=== PATIENT | female | born 1990 | race Caucasian/White ===

== ENCOUNTER 2017-05-30 14:20 | Outpatient (CLI) | payer BC | END 2017-05-30 14:21 | disposition critical access hospital (66) | LOC: EMS 14:20 | PROVIDERS: ATTEND Surgery | DX: R45.89 Other symptoms and signs involving emotional state (principal) | CPT/HCPCS: A0425; A0429 ==

== ENCOUNTER 2017-05-30 14:45 | Emergency (ER) | payer BC, MEDICAID ==
[2017-05-30 15:43] VITALS: BP 134/89
== END 2017-05-30 15:05 | disposition left against medical advice (07) ==
LOC: EDUNIT# → ED 14:45
DX: Z53.21 Procedure and treatment not carried out due to patient leaving prior to being seen by health care provider (principal)
CPT/HCPCS: 99281

== ENCOUNTER 2017-05-30 15:52 | Emergency (ER) | payer BC, MEDICAID, OTHER ==
[2017-05-30 18:20] LABS: BASOPHILS # (AUTO) 0.1 10^3/uL (0.0-0.1); BASOPHILS % (AUTO) 0.6 %; EOSINOPHILS # (AUTO) 0.1 10^3/uL (0.0-0.7); EOSINOPHILS % (AUTO) 0.7 %; HGB - HEMOGLOBIN 14.2 g/dL (12.0-16.0); LYMPHOCYTES # (AUTO) 2.3 10^3/uL (1.5-3.5); LYMPHOCYTES % (AUTO) 27.2 %; MEAN CORPUSCULAR HEMOGLOBIN 28.5 pg (27.0-31.0); MEAN CORPUSCULAR HGB CONC 33.3 g/dL (32.0-36.0); MEAN CORPUSCULAR VOLUME 85.6 fL (81.0-99.0); MEAN PLATELET VOLUME 7.6 fL (7.9-10.8); MONOCYTES # (AUTO) 0.6 10^3/uL (0.0-1.0); MONOCYTES % (AUTO) 7.1 %; NEUTROPHILS # (AUTO) 5.5 10^3/uL (1.5-6.6); NEUTROPHILS % (AUTO) 64.4 %; PLT - PLATELET COUNT 317 10^3/uL (130-450); RED CELL DISTRIBUTION WIDTH 12.6 % (12.0-15.0); WHITE BLOOD COUNT 8.5 x10^3/uL (4.8-10.8)
[2017-05-30 18:38] LABS: ALBUMIN 4.4 g/dL (3.2-5.5); ALBUMIN/GLOBULIN RATIO 1.3 (1.0-2.2); ALKALINE PHOSPHATASE 57 IU/L (42-121); ALT ALANINE AMINOTRANSFERASE 17 IU/L (10-60); AST ASPARTATE AMINOTRANSFERASE 25 IU/L (10-42); BILIRUBIN,TOTAL 0.7 mg/dL (0.2-1.0); BUN - BLOOD UREA NITROGEN 12 mg/dL (6-20); CALCIUM 8.9 mg/dL (8.5-10.3); CARBON DIOXIDE - CO2 23 mmol/L (21-32); CHLORIDE 106 mmol/L (101-111); CREATININE 0.7 mg/dL (0.4-1.0); GFR - MDRD 100 (>89); GLUCOSE 82 mg/dL (70-100); LIPASE 10 U/L (22-51); SALICYLATE < 6.0 mg/dL; SODIUM 136 mmol/L (135-145); TOTAL PROTEIN 7.8 g/dL (6.7-8.2)
--- NOTE | 2017-05-30 18:48 | ED Physician Documentation ---
PD HPI MHE - Stated complaint Stated Complaint: MHE - Chief complaint Chief Complaint: MHE - History obtained from History obtained from: Patient - History of Present Illness Primary symptom: Suicidal ideation, Anxiety Timing - onset: Today Contributing factors: Sig other (situation with her spouse/SO having possible affair and this upset her. She felt briefly suicidal but says she is not feeling that way now. She was brought by police due to statements of wanting to hurt herself. Did not take any action on it. Has not been drinking.). No: Substance abuse - ETOH, Substance abuse - drugs Similar symptoms before: Has not had sx before Recently seen: Not recently seen Review of Systems Nose: denies: Rhinorrhea / runny nose, Congestion Throat: denies: Sore throat GI: denies: Nausea, Vomiting, Diarrhea : denies: Dysuria, Frequency, Missed period, Now EGA Skin: denies: Rash, Lesions Neurologic: denies: Generalized weakness, Focal weakness, Numbness, Confused, Altered mental status, Headache Psychiatric: reports: Depressed. denies: Homicidal, Delusions, Anxiety, Insomnia Endocrine: denies: Weight loss Immunocompromised: denies: Immunocompromised PD PAST MEDICAL HISTORY - Past Medical History Past Medical History: Yes Psych: Depression (gets counseling. ) Musculoskeletal: Fibromyalgia - Past Surgical History Past Surgical History: No - Present Medications Home Medications: Ambulatory Orders Medication Instructions Recorded Confirmed Amoxicillin/Potassium Clav 1 each PO BID 7 Days tablet 05/29/15 [Augmentin 875-125 Tablet] Hydrocodone/Acetaminophen 1 each PO Q4HR PRN #10 tablet 05/29/15 [Hydrocodon-Acetaminophen 5-325] Ondansetron Odt [Zofran] 4 mg TL Q6H PRN #10 tablet 05/29/15 Cholecalciferol (Vitamin D3) 2,000 unit PO DAILY #30 capsule 05/30/17 [Vitamin D] - Allergies Allergies/Adverse Reactions: Allergies Allergy/AdvReac Type Severity Reaction Status Date / Time No Known Drug Allergies Allergy Verified 05/29/15 00:46 - Social History Does the pt smoke?: No Smoking Status: Never smoker Does the pt drink ETOH?: No Does the pt have substance abuse?: No PD ED PE NORMAL - Vitals Vital signs reviewed: Yes - General General: Alert and oriented X 3, No acute distress, Well developed/nourished - HEENT HEENT: Pharynx benign - Neck Neck: Supple, no meningeal sign, No adenopathy - Cardiac Cardiac: RRR, No murmur - Respiratory Respiratory: Clear bilaterally - Derm Derm: Normal color, Warm and dry, No rash - Extremities Extremities: No tenderness to palpate, Normal ROM s pain, No edema, No calf tenderness / cord - Neuro Neuro: Alert and oriented X 3, No motor deficit, Normal speech Eye Opening: Spontaneous Motor: Obeys Commands Verbal: Oriented GCS Score: 15 - Psych Psych: No: Normal mood (seems sad but has forward and future thinking about job and activities. ) Results - Vitals Vitals: Oxygen O2 Source Room air - Labs Labs: Microbiology 05/30/17 19:10 Urine Culture - Final Urine,Clean Catch YEAST Laboratory Tests 05/30/17 05/30/17 05/30/17 18:06 18:06 19:10 WBC 8.5 RBC 5.00 Hgb 14.2 Hct 42.8 MCV 85.6 MCH 28.5 MCHC 33.3 RDW 12.6 Plt Count 317 MPV 7.6 L Neut # 5.5 Lymph # 2.3 [place] # 0.6 Eos # 0.1 Baso # 0.1 Absolute Nucleated RBC 0.00 Nucleated RBC % 0.0 Sodium 136 Potassium 3.8 Chloride 106 Carbon Dioxide 23 Anion Gap 7.0 BUN 12 Creatinine 0.7 Estimated GFR (MDRD) 100 Glucose 82 Calcium 8.9 Total Bilirubin 0.7 AST 25 ALT 17 Alkaline Phosphatase 57 Total Protein 7.8 Albumin 4.4 Globulin 3.4 Albumin/Globulin Ratio 1.3 Lipase 10 L Urine Color Urine Clarity Urine pH Ur Specific [place] Urine Protein Urine Glucose (UA) Urine Ketones Urine Occult Blood Urine Nitrite Urine Bilirubin Urine Urobilinogen Ur Leukocyte Esterase Urine RBC Urine WBC Ur Squamous Epith Cells Urine Bacteria Urine Mucus Ur Microscopic Review Urine Culture Comments Urine HCG, Qual Salicylates < 6.0 Urine Opiates Screen NEGATIVE Ur Oxycodone Screen NEGATIVE Urine Methadone Screen NEGATIVE Ur Propoxyphene Screen NEGATIVE Acetaminophen < 10 L Ur Barbiturates Screen NEGATIVE Ur Tricyclics Screen NEGATIVE Ur Phencyclidine Scrn NEGATIVE Ur Amphetamine Screen NEGATIVE U Methamphetamines Scrn NEGATIVE U Benzodiazepines Scrn NEGATIVE Urine Cocaine Screen NEGATIVE U Cannabinoids Screen NEGATIVE Ethyl Alcohol < 5.0 05/30/17 19:10 WBC RBC Hgb Hct MCV MCH MCHC RDW Plt Count MPV Neut # Lymph # [place] # Eos # Baso # Absolute Nucleated RBC Nucleated RBC % Sodium Potassium Chloride Carbon Dioxide Anion Gap BUN Creatinine Estimated GFR (MDRD) Glucose Calcium Total Bilirubin AST ALT Alkaline Phosphatase Total Protein Albumin Globulin Albumin/Globulin Ratio Lipase Urine Color YELLOW Urine Clarity CLOUDY Urine pH 6.0 Ur Specific [place] >=1.030 H Urine Protein NEGATIVE Urine Glucose (UA) NEGATIVE Urine Ketones 40 H Urine Occult Blood MODERATE H Urine Nitrite NEGATIVE Urine Bilirubin NEGATIVE Urine Urobilinogen 0.2 (NORMAL) Ur Leukocyte Esterase SMALL H Urine RBC 0-5 Urine WBC 4-5 Ur Squamous Epith Cells FEW Squamous Urine Bacteria Rare Urine Mucus Marked Strands Ur Microscopic Review INDICATED Urine Culture Comments INDICATED Urine HCG, Qual NEGATIVE Salicylates Urine Opiates Screen Ur Oxycodone Screen Urine Methadone Screen Ur Propoxyphene Screen Acetaminophen Ur Barbiturates Screen Ur Tricyclics Screen Ur Phencyclidine Scrn Ur Amphetamine Screen U Methamphetamines Scrn U Benzodiazepines Scrn Urine Cocaine Screen U Cannabinoids Screen Ethyl Alcohol PD MEDICAL DECISION MAKING - ED course Complexity details: considered differential, d/w patient, d/w systems development consultant ( consulted Social Work but they are leaving for the day soon and did not have time to see her. I had [facility] talk with her phone interview and they set up next day call and will have appt for her in 2-3 days (patient could not make next day appt due to her work hours). Patient is feeling relaxed and has forward/ future thinking and does not want to hurt herself at this time. ) Departure - Departure Disposition: 01 Home, Self Care Clinical Impression: Reactive depression (situational), Suicidal ideation Condition: Stable Record reviewed to determine appropriate education?: Yes Instructions: ED Stress React, ED Depression Follow-Up: [facility] [Provider Group] Prescriptions: Cholecalciferol (Vitamin D3) [Vitamin D] 2,000 unit PO DAILY #30 capsule Comments: Drink lots of fluids. No alcohol is just enhances moods and does not improve them. Call the crisis line at any point if you need someone to talk to. They will contact you tomorrow to see how you are doing and work with him to set up a counseling appointment this week that works with your schedule. You might consider starting just vitamin D daily which does help with depression and has really no side effects. Going to work and doing regular activities and some daily exercise outside also helps. Forms: Activity restrictions Discharge Date/Time: 05/30/17 20:03
[2017-05-30 18:50] LABS: ACETAMINOPHEN < 10 ug/mL (10-30)
[2017-05-30 19:19] VITALS: BP 112/74
[2017-05-30 19:20] LABS: MUDS CUTOFF CONCENTRATIONS CUTOFF CONC BELOW:
[2017-05-30 19:23] LABS: BILIRUBIN,URINE NEGATIVE (NEGATIVE); GLUCOSE, URINE (UA) NEGATIVE (NEGATIVE); KETONES,URINE (UA) 40 mg/dL (NEGATIVE); LEUKOCYTE ESTERASE, URINE SMALL (NEGATIVE); NITRITE,URINE NEGATIVE (NEGATIVE); OCCULT BLOOD,URINE MODERATE (NEGATIVE); PROTEIN,URINE NEGATIVE (NEGATIVE); UROBILINOGEN,URINE 0.2 (NORMAL) E.U./dL (NORMAL)
[2017-05-30 19:35] LABS: CLARITY,URINE CLOUDY (CLEAR); HCG UR QUAL NEGATIVE
[2017-05-30 19:36] LABS: AMPHETAMINE SCREEN,URINE NEGATIVE (NEGATIVE); BACTERIA,URINE Rare /HPF (None Seen); BENZODIAZEPINES SCREEN, URINE NEGATIVE (NEGATIVE); COCAINE SCREEN URINE NEGATIVE (NEGATIVE); METHADONE SCREEN, URINE NEGATIVE (NEGATIVE); METHAMPHETAMINES SCREEN, URINE NEGATIVE (NEGATIVE); MUCUS,URINE Marked Strands; OPIATE SCREEN, URINE NEGATIVE (NEGATIVE); OXYCODONE SCREEN, URINE NEGATIVE (NEGATIVE); PROPOXYPHENE SCREEN, URINE NEGATIVE (NEGATIVE); RBC,URINE 0-5 /HPF (0-5); SQUAMOUS EPITHELIAL CELL,UR FEW Squamous (<= Few); TRICYCLIC ANTIDEPRESSANT,URINE NEGATIVE (NEGATIVE)
== END 2017-05-30 20:03 | disposition home or self-care (01) ==
LOC: ED 15:52
DX: F43.21 Adjustment disorder with depressed mood (principal); R45.851 Suicidal ideations
CPT/HCPCS: 36415; 80053; 80306; 80307; 80320; 80329; 81001; 81003; 81025; 83690; 85025; 87086; 99283; 99284

== ENCOUNTER 2018-08-16 02:18 | Emergency (ER) | payer BC, OTHER ==
[2018-08-16] MEDS ORDERED: PENICILLIN VK 250 MG TABLET PO ONE (05:38)
[2018-08-16] MEDS ORDERED: ONDANSETRON ODT 4 MG TABLET ONE (05:39)
[2018-08-16] MEDS ORDERED: DEXAMETHASONE 10 MG/ML VIAL ONE (05:40)
[2018-08-16] MEDS ORDERED: CHERRY SYRUP 10 ML UDC PO ONE (05:40)
== END 2018-08-16 09:10 | disposition home or self-care (01) ==
LOC: ED 02:18
DX: J02.0 Streptococcal pharyngitis (principal)
CPT/HCPCS: 87430; 99281; 99283; A9270; Q0162

== ENCOUNTER 2019-01-17 13:37 | Emergency (ER) | payer OTHER ==
[2019-01-17 13:54] VITALS: BP 127/83
--- NOTE | 2019-01-17 16:39 | ED Physician Documentation ---
PD HPI URI - Stated complaint Stated Complaint: SORE THROAT - Chief complaint Chief Complaint: Heent - History obtained from History obtained from: Patient - History of Present Illness Timing - onset: How many days ago (several) Timing duration: Days Timing details: Abrupt onset, Still present Associated symptoms: Fever, Nasal congestion, Sore throat, Productive cough, NVD (nausea since meds last night (Z-pack), no vomiting.) Contributing factors: No: Sick contact, Travel, Immunocompromised Recently seen: Emergency Dept ([facility] yesterday evening and Rx Zithromax and Albuterol. States throat hurting worse and having pain with swallowing. Some nausea after taking the antibiotics. She states her throat was hurting prior to the antibiotics but got worse. She denies any general rash or itchiness.) Review of Systems Constitutional: reports: Fever, Chills, Myalgias, Fatigue Nose: reports: Congestion Throat: reports: Sore throat (worse since yesterday) Respiratory: reports: Cough GI: reports: Nausea. denies: Abdominal Pain, Vomiting, Diarrhea Skin: denies: Rash, Lesions Neurologic: reports: Generalized weakness. denies: Altered mental status, Headache PD PAST MEDICAL HISTORY - Past Medical History Past Medical History: Yes Cardiovascular: None Respiratory: None Psych: Depression Musculoskeletal: Fibromyalgia - Past Surgical History Past Surgical History: No - Present Medications Home Medications: Ambulatory Orders Medication Instructions Recorded Confirmed Amoxicillin/Potassium Clav 1 each PO BID 7 Days tablet 05/29/15 [Augmentin 875-125 Tablet] Hydrocodone/Acetaminophen 1 each PO Q4HR PRN #10 tablet 05/29/15 [Hydrocodon-Acetaminophen 5-325] Ondansetron Odt [Zofran] 4 mg TL Q6H PRN #10 tablet 05/29/15 Cholecalciferol (Vitamin D3) 2,000 unit PO DAILY #30 capsule 05/30/17 [Vitamin D] Hydrocodone/Acetaminophen 1 - 2 each PO Q6H PRN #14 tablet 01/17/19 [Hydrocodon-Acetaminophen 5-325] Ondansetron Odt [Zofran] 4 mg TL Q6H PRN #10 tablet 01/17/19 dexAMETHasone [Decadron] 4 mg PO DAILY #5 tablet 01/17/19 - Allergies Allergies/Adverse Reactions: Allergies Allergy/AdvReac Type Severity Reaction Status Date / Time No Known Drug Allergies Allergy Verified 01/17/19 13:53 - Social History Does the pt smoke?: No Smoking Status: Never smoker Does the pt drink ETOH?: No Does the pt have substance abuse?: No - Immunizations Immunizations are current?: Yes PD ED PE NORMAL - Vitals Vital signs reviewed: Yes - General General: Alert and oriented X 3, Well developed/nourished, Other (she looks like she feels ill. Conversant without hoarseness. Unlabored breathing. ) - HEENT HEENT: Ears normal, Pharynx benign (some redness without exudate and no peritonsillar swelling seen. ) - Neck Neck: Supple, no meningeal sign, Other (mild anterior adenopathy. ) - Cardiac Cardiac: RRR, No murmur - Respiratory Respiratory: Clear bilaterally - Abdomen Abdomen: Soft, Non tender - Derm Derm: Normal color, Warm and dry - Neuro Neuro: Alert and oriented X 3, No motor deficit, Normal speech Results - Vitals Vitals: Vital Signs - 24 hr 01/17/19 13:48 Temperature 36.9 C Heart Rate 82 Respiratory 16 Rate Blood Pressure 127/83 H O2 Saturation 99 Oxygen O2 Source Room air - Labs Labs: Laboratory Tests 01/17/19 16:31 Group A Strep Rapid Negative Departure - Departure Disposition: 01 Home, Self Care Clinical Impression: Sore throat Upper respiratory infection Qualifiers: URI type: unspecified URI Qualified Code(s): J06.9 - Acute upper respiratory infection, unspecified Condition: Stable Record reviewed to determine appropriate education?: Yes Instructions: ED Upper Resp Infec Abx Tx Follow-Up: Katrin Felton PA-C [Primary Care Provider] - Prescriptions: dexAMETHasone [Decadron] 4 mg PO DAILY #5 tablet Hydrocodone/Acetaminophen [Hydrocodon-Acetaminophen 5-325] 1 - 2 each PO Q6H PRN #14 tablet PRN Reason: pain Ondansetron Odt [Zofran] 4 mg TL Q6H PRN #10 tablet PRN Reason: Nausea / Vomiting Comments: Your strep test is negative. I presume this is more likely a viral infection though since you have Jason been prescribed the Zithromax antibiotic, you can continue with that. In addition to that, use Decadron steroid anti-inflammatory and that will help the cough and sore throat. Stay well-hydrated. Ondansetron if needed for nausea. Add hydrocodone if needed for pain. Rest the next 2 to 3 days. You should show improvement in the next 1 to 2 days. Return if worsening. Forms: Activity restrictions Discharge Date/Time: 01/17/19 17:12
[2019-01-17] MEDS ORDERED: DEXAMETHASONE 10 MG/ML VIAL PO STA (16:50)
[2019-01-17] MEDS ORDERED: ONDANSETRON ODT 4 MG TABLET TL STA (16:50)
[2019-01-17] MEDS ORDERED: CHERRY SYRUP 10 ML UDC PO ONE (16:50)
[2019-01-17] MEDS ORDERED: HYDROcod/ACETAM 5/325 MG TABLET PO STA (16:50)
[2019-01-17] MEDS ORDERED: diphenhydrAMINE ELIXIR 25 MG/10 ML UDC PO STA (16:50)
== END 2019-01-17 17:12 | disposition home or self-care (01) ==
LOC: ED 13:37
DX: J02.9 Acute pharyngitis, unspecified (principal); J06.9 Acute upper respiratory infection, unspecified
CPT/HCPCS: 87070; 87430; 99283; 99284; A9270; Q0162

== ENCOUNTER 2019-05-25 15:23 | Outpatient (CLI) | payer OTHER | END 2019-05-25 15:24 | disposition home or self-care (01) | LOC: COV 15:23 | PROVIDERS: ATTEND Family Medicine | DX: R50.9 Fever, unspecified (principal) | CPT/HCPCS: 81599 ==